=== PATIENT | female | born 1985 | race Caucasian/White ===

== ENCOUNTER 2019-10-30 09:33 | Inpatient (IN) | payer BC ==
[2019-11-01] MEDS ORDERED: OXYTOCIN 10 UNIT/ML 1 ML VIAL IM PRN (03:46)
[2019-11-01] MEDS ORDERED: METHYLERGONOVINE 0.2 MG/ML 1 ML AMP IM PRN (03:46)
[2019-11-01] MEDS ORDERED: LIDOCAINE 0.5% (PF) 5 MG/ML (50 ML SDV) SQ PRN (03:46)
[2019-11-01] MEDS ORDERED: CARBOPROST TROMETHAMINE 250 MCG/ML 1 ML AMP IM PRN (03:46)
[2019-11-01] MEDS ORDERED: TERBUTALINE 1 MG/ML VIAL SQ PRN (03:46)
[2019-11-01] MEDS ORDERED: OXYTOCIN 30 UNITS/500 ML NS 30 UNIT in SALINE 1 500ML.BAG IV SCH (04:00)
[2019-11-01] MEDS: LACTATED RINGERS 1,000 ML IV SCH ×2 (04:13→09:04)
[2019-11-01 05:03] LABS: Basophils % (A) 0 %; Eosinophils # (A) 0.2 k/uL (0-0.7); Eosinophils % (A) 1 %; HCT 34.4 % (34.0-46.0); HGB 11.1 gm/dL (11.4-16.0); Lymphocytes # (A) 2.1 k/uL (1.0-4.8); Lymphocytes % (A) 18 %; MCH 29.4 pg (25.0-35.0); MCHC 32.4 g/dL (31.0-37.0); MCV 90.9 fL (80.0-100.0); Monocytes # (A) 0.5 k/uL (0-1.0); Monocytes % (A) 4 %; Neutrophils # (A) 9.1 k/uL (1.3-7.7); Neutrophils % (A) 76 %; Platelet Count 135 k/uL (150-450); RBC 3.78 m/uL (3.80-5.40); RDW 14.4 % (11.5-15.5)
[2019-11-01 05:45] LABS: Large Platelets Present
--- NOTE | 2019-11-01 07:00 | P.HPOB ---
History of Present Illness H&P Date: 11/01/19 This is a 34-year-old white female 3 para 2003 EDC 10/30/2019 at 40-2/7 weeks' gestation. Patient presents today for induction with favorable multiparous cervix and a history of rapid labor. She actually presented at 3:30 this morning with regular but mild uterine contractions. Fetus is been active throughout the . Past medical history is significant for hemorrhage in 2016 after twin delivery, no transfusion needed. Past surgical history appendectomy 2017. Current medications vitamins daily. ALLERGIES dye allotted to which she reports "my skin feels like is on fire". Family history significant for thyroid disease, seizure disorder, diabetes, heart attack. Reproductive history is significant for vaginal delivery of the knight, as well as twins, in [place]. Social history patient is a former smoker, she is , she denies alcohol or drug use. Obstetric history significant for blood type A-, rubella status immune. VDRL testing, urine culture, gonorrhea and chlamydia cultures, hepatitis B surface antigen, HIV testing all negative. One-hour Glucola 92. Group B strep cultures negative. On exam this is a pleasant white female who is 5 foot 8 inches, 145 pounds, blood pressure 122/57 and admission. The general exam is within normal limits. Chest is clear in all worrell. Extremities are negative for edema. heart rate is consistent with reactive NST. Cervix is 4 cm dilated, 80% effaced, -2 station, vertex presentation. Artificial amniorrhexis reveals clear fluid. Uterine contractions are irregular, oxytocin has been started. Impression: 40-2/7 weeks intrauterine , early spontaneous labor. All signs reassuring. Plan: Oxytocin per hospital protocol. Analgesic options have been reviewed. Close maternal and surveillance. Anticipate normal spontaneous vaginal delivery. Review of Systems Constitutional: Reports as per HPI Past Medical History History of Any Multi-Drug Resistant Organisms: None Reported Past Surgical History: Appendectomy Past Anesthesia/Blood Transfusion Reactions: No Reported Reaction Past Psychological History: No Psychological Hx Reported Smoking Status: Never smoker Medications and Allergies Home Medications Medication Instructions Recorded Confirmed Type Ferrous Sulfate [Feosol] 325 mg PO DAILY 11/01/19 11/01/19 History Pnv,Calcium 72/Iron/Folic Acid 1 each PO DAILY 11/01/19 11/01/19 History [ Plus Tablet] Allergies Allergy/AdvReac Type Severity Reaction Status Date / Time hydromorphone [From Dilaudid] Allergy Rash/Hives Verified 11/01/19 03:45 Exam Vital Signs Temp Pulse Resp BP Pulse Ox 11/01/19 03:44 97.1 F L 81 16 122/57 97 Intake and Output 10/31/19 10/31/19 11/01/19 14:59 22:59 06:59 Intake Total 250 Balance 250 Intake: IV 250 Other: # Voids 1 Weight 69.853 kg See dictation under HPI please Results Result Diagrams: 11/01/19 03:35 Abnormal Lab Results - Last 24 Hours (Table) 11/01/19 Range/Units 03:35 WBC 12.0 H (3.8-10.6) k/uL RBC 3.78 L (3.80-5.40) m/uL Hgb 11.1 L (11.4-16.0) gm/dL Plt Count 135 L (150-450) k/uL Neutrophils # 9.1 H (1.3-7.7) k/uL Assessment and Plan Assessment: 40-2/7 weeks intrauterine , early spontaneous labor. All signs reassuring. Plan: Oxytocin per hospital protocol. Close maternal and surveillance. Analgesic options reviewed. Anticipate normal spontaneous vaginal delivery. Time with Patient: Less than 30
[2019-11-01] MEDS ORDERED: ACETAMINOPHEN TAB 325 MG TAB PO PRN (11:11)
[2019-11-01] MEDS ORDERED: WITCH HAZEL 1 EACH MED..PAD TOPICAL PRN (11:11)
[2019-11-01] MEDS ORDERED: diphenhydrAMINE 25 MG CAP PO PRN (11:11)
[2019-11-01] MEDS ORDERED: ZOLPIDEM 5 MG TAB PO PRN (11:11)
[2019-11-01] MEDS ORDERED: SIMETHICONE 80 MG CHEWABLE PO PRN (11:11)
[2019-11-01] MEDS ORDERED: LANOLIN CREAM 5 GM TUBE TOPICAL PRN (11:11)
[2019-11-01] MEDS ORDERED: diphenhydrAMINE 50 MG/ML 1 ML VIAL IVP PRN ×2 (11:11)
[2019-11-01] MEDS ORDERED: BENZOCAINE/MENTHOL SPRAY 1 GM/SPRAY AEROSOL TOPICAL PRN (11:11)
[2019-11-01] MEDS ORDERED: diphenhydrAMINE 50 MG CAP PO PRN (11:11)
[2019-11-01] MEDS ORDERED: HYDROCORTISONE 2.5% RECTAL CREAM 30 GM TUBE RECTAL PRN (11:11)
[2019-11-01] MEDS ORDERED: diphenhydrAMINE ELIXIR 25 MG/10 ML CUP PO PRN (11:11)
--- NOTE | 2019-11-01 11:11 | P.PROBDLV ---
Vaginal Delivery Note - . Vaginal Delivery Note: This is a 34-year-old white female 3 para 2002 EDC 10/30/2019 at 40-2/7 weeks' gestation. Patient presented for induction for postdates and favorable cervix, however presented in active spontaneous labor through the night at home. is remarkable for rubella status immune, blood type A- , group B strep cultures negative. Please see my dictated history and physical for details. Artificial amniorrhexis revealed clear fluid. Oxytocin augmentation was started. Epidural was placed per her request. She became completely dilated at 1029 hours. Perineal body was prepped and draped in usual sterile fashion. Please note that heart tones were reassuring throughout the first and second stages of labor. With excellent maternal expulsive efforts patient's head delivered in the occiput anterior position and restituted accordingly. There was no nuchal cord noted. The right or anterior shoulder was gently and easily delivered from underneath the pubic symphysis at which time the oropharynx, nasopharynx, and external nares were all bulb suctioned on the perineal body. Patient was officially delivered a liveborn female at 1052 hours. Umbilical cord was doubly clamped and ligated, was handed to waiting nurses for evaluation where scores of 9 and 9 at one and 5 minutes respectively were given. Infant weighs 7 lbs. 9 oz. or 3430 g. Placenta is delivered spontaneously, it is inspected and noted to be intact with trivascular cord at 1056 hours utilizing active management. Perineal body is then redraped. Careful inspection of the cervix, vagina, perineum, periurethral, and perirectal areas reveals a very small first-degree right labial laceration which is easily repaired with a single [id number] stitch of Monocryl. Uterus is firm, midline, symmetric. Bleeding is initially somewhat brisk, Methergine was given IM 1 with excellent and immediate response. Total estimated blood loss 300 mL's. Patient and family are all allowed to begin the bonding experience in the LDR.
[2019-11-01] MEDS ORDERED: OXYTOCIN 20 UNITS/1000 ML NS 1,000 ML IV SCH (11:15)
[2019-11-01] MEDS: IBUPROFEN 600 MG TAB PO PRN ×2 (12:45→22:40)
[2019-11-01 13:20] VITALS: RESP 18
[2019-11-01] MEDS ORDERED: ROPIVACAINE 100 MG, fentaNYL (PF) 200 MCG in SODIUM CHLORIDE 0.9% 76 ML EPIDURAL ONE (13:33)
[2019-11-02] MEDS: LACTATED RINGERS 1,000 ML IV SCH (00:10)
[2019-11-02] MEDS: SENNOSIDES-DOCUSATE SODIUM 1 EACH TAB PO SCH ×2 (00:30→08:02)
--- NOTE | 2019-11-02 07:52 | P.DS ---
Providers Date of admission: 11/01/19 03:25 Expected date of discharge: 11/02/19 Attending physician: Alis Perez Primary care physician: Stated None Hospital Course: This is a 34-year-old white female 3 para 2003 EDC 10/30/2019 at 40-2/7 weeks' gestation. Patient presented for induction for postdates and favorable cervix. She actually presented in early spontaneous labor. is remarkable for blood type A-, group B strep cultures negative, rubella status immune. Please see dictated history and physical for details. Patient was admitted, artificial amniorrhexis revealed clear fluid. Oxytocin was started and titrated. She swiftly went on to deliver a liveborn female with scores of 9 and 9 at one and 5 minutes respectively. There was a small first-degree right labial laceration easily repaired, estimated blood loss 300 mL's. Infant weighed 7 lbs. 9 oz. or 3430 g. Please see my dictated delivery note for details. This morning the patient is doing well. She is voiding, ambulating, passing flatus without difficulty. Vital signs are stable and she is afebrile. Fundus is firm and in the midline, symmetric and 18 week size. Extremities are negative for edema. infant is doing well. Breast-feeding is going well. Pain is well managed. Patient is judged to be in very good condition for discharge home. She will follow-up with me in the office in 6 weeks. I have reminded her no intercourse, tampons or douching. We have briefly reviewed options for contraception and we will discuss this further in the office. She will use [id number] Advil or Aleve, or Motrin as needed for pain. She will call with any fevers shakes or chills, foul smelling or copious lochia, with the passage of large blood clots, with any pain not alleviated by [id number] products, or indeed with any concerns. infant will follow-up with saturator tender as per recommendations. Assessment: Doing well day #1 Patient Condition at Discharge: Good Plan - Discharge Summary Discharge Rx Participant: No New Discharge Prescriptions: No Action Ferrous Sulfate [Feosol] 325 mg PO DAILY Pnv,Calcium 72/Iron/Folic Acid [ Plus Tablet] 1 each PO DAILY Discharge Medication List Ferrous Sulfate [Feosol] 325 mg PO DAILY 11/01/19 [History] Pnv,Calcium 72/Iron/Folic Acid [ Plus Tablet] 1 each PO DAILY 11/01/19 [History] Follow up Appointment(s)/Referral(s): Ails Perez MD [STAFF PHYSICIAN] - 6 Weeks
[2019-11-02] MEDS: IBUPROFEN 600 MG TAB PO PRN (08:02)
[2019-11-02 08:59] VITALS: BP 101/64; PULSE 66; TEMP 98.1
== END 2019-11-02 15:21 | disposition home or self-care (01) | DRG 807 ==
LOC: 4FBP 11-01 03:25
PROVIDERS: ADMIT Obstetrics & Gynecology; ATTEND Obstetrics & Gynecology
PROC: 3E0R3BZ Introduction of Anesthetic Agent into Spinal Canal, Percutaneous Approach (ICD-10-PCS; principal; 2019-11-01)
PROC: 00HU33Z Insertion of Infusion Device into Spinal Canal, Percutaneous Approach (ICD-10-PCS; principal; 2019-11-01)
PROC: 10E0XZZ Delivery of Products of Conception, External Approach (ICD-10-PCS; principal; 2019-11-01)
PROC: 0HQ9XZZ Repair Perineum Skin, External Approach (ICD-10-PCS; principal; 2019-11-01)
DX: O48.0 Post-term pregnancy (principal); Z37.0 Single live birth; O70.0 First degree perineal laceration during delivery; Z3A.40 40 weeks gestation of pregnancy; Z90.49 Acquired absence of other specified parts of digestive tract; Z87.891 Personal history of nicotine dependence; Z91.041 Radiographic dye allergy status; Z82.0 Family history of epilepsy and other diseases of the nervous system; Z82.49 Family history of ischemic heart disease and other diseases of the circulatory system; Z83.3 Family history of diabetes mellitus; Z83.49 Family history of other endocrine, nutritional and metabolic diseases
CPT/HCPCS: 85025; 86850; 86900; 86901

== ENCOUNTER 2020-11-09 11:05 | Emergency (ER) | payer BC ==
[2020-11-09] MEDS ORDERED: SODIUM CHLORIDE 0.9% 1,000 ML IV ONE (11:27)
--- NOTE | 2020-11-09 11:30 | ED ---
General Adult HPI - General Chief complaint: Urogenital Stated complaint: possible cyst, early , syncope Time Seen by Provider: 11/09/20 11:13 Source: patient Mode of arrival: ambulatory Limitations: no limitations - History of Present Illness Initial comments: 35-year-old female currently estimated to be 4 weeks presents to the emergency room for a chief complaint of abdominal pain. Patient reports that she started to have abdominal pain suddenly last night. It is worse on the right lower quadrant. Patient states it feels like a cyst which she has had in the past. Patient states the severe pain lasted for about an hour and then did improve however she does have persistent mild pain at a 4/10. Denies vaginal bleeding. Patient called her TUNNELING MACHINE OPERATOR who is not in the office, therefore the nurse recommended she come to the emergency room. Patient denies any episodes of syncope or lightheadedness. Patient did have an appendectomy. Patient denies fevers or chills. She reports she had a positive test last week.Patient has no other complaints at this time including shortness of breath, chest pain, nausea or vomiting, headache, or visual changes. - Related Data Home Medications Medication Instructions Recorded Confirmed Pnv,Calcium 72/Iron/Folic Acid 1 each PO DAILY 11/01/19 11/09/20 [ Plus Tablet] Acetaminophen Tab [Tylenol] 650 mg PO DAILY PRN 11/09/20 11/09/20 Allergies Allergy/AdvReac Type Severity Reaction Status Date / Time hydromorphone [From Dilaudid] Allergy Rash/Hives Verified 11/09/20 12:40 Review of Systems ROS Statement: Those systems with pertinent positive or pertinent negative responses have been documented in the HPI. ROS Other: All systems not noted in ROS Statement are negative. Past Medical History Additional Past Medical History / Comment(s): Ovarian cyst. History of Any Multi-Drug Resistant Organisms: None Reported Past Surgical History: Appendectomy Past Anesthesia/Blood Transfusion Reactions: No Reported Reaction Past Psychological History: No Psychological Hx Reported Smoking Status: Never smoker Past Alcohol Use History: Occasional Past Drug Use History: None Reported General Exam Limitations: no limitations General appearance: alert, in no apparent distress Head exam: Present: atraumatic, normocephalic, normal inspection Eye exam: Present: normal appearance, PERRL, EOMI. Absent: scleral icterus, conjunctival injection, periorbital swelling ENT exam: Present: normal exam, mucous membranes moist Neck exam: Present: normal inspection. Absent: tenderness, meningismus, lymphadenopathy Respiratory exam: Present: normal lung sounds bilaterally. Absent: respiratory distress, wheezes, rales, rhonchi, stridor Cardiovascular Exam: Present: regular rate, normal rhythm, normal heart sounds. Absent: systolic murmur, diastolic murmur, rubs, gallop, clicks GI/Abdominal exam: Present: soft, tenderness (Minimal right lower quadrant tenderness. No guarding or rebound.), normal bowel sounds. Absent: distended, guarding, rebound, rigid External exam: Present: normal external exam. Absent: erythema, swelling, lesions, lacerations, ecchymosis Speculum exam: Present: normal speculum exam. Absent: erythema, vaginal discharge, cervical discharge, vaginal bleeding, foreign body, tissue, laceratio n By manual exam: Present: adnexal tenderness (Slight right adnexal tenderness.), uterine tenderness (Slight uterine tenderness.). Absent: normal by manual exam, cervical motion tenderness Neurological exam: Present: alert Course Vital Signs 11/09/20 11:08 Temperature 97.7 F Pulse Rate 98 Respiratory 20 Rate Blood Pressure 120/81 O2 Sat by Pulse 99 Oximetry Medical Decision Making - Medical Decision Making Patient is well-appearing. Vitals are stable. Minimal abdominal tenderness. Minimal adnexal tenderness. No significant tenderness or guarding. Patient currently rating her pain at a 4 out of 10, does not appear in distress. CBC is unremarkable. Hemoglobin 12.5. CMP is unremarkable. Urinalysis does not show any evidence of infection. A- blood type however patient is not having any vaginal bleeding. HCG is 1800. Ultrasound revealed a complex free fluid noted in the cul-de-sac right adnexa. There is a large heterogeneous area within the right ovary which is indeterminant, follow-up in 6 weeks recommended. There is also markedly heterogeneous signal with some fluid seen in the uterus which is indeterminant. May represent blood products versus molar . However other etiologies are possible. Patient's TUNNELING MACHINE OPERATOR is Dr. Perez, Dr. Conn is on-call for her. I discussed this case with him in depth. I read the ultrasound report to him and discuss concerns. At this point he states that he needs her to repeat her hCG in 2 days and to discuss strict return parameters for ectopic . Patient is comfortable with this plan. I did have a lengthy discussion with her about symptoms that would require her to immediately return to the emergency room. She will otherwise follow up with him on Thursday. - Lab Data Result diagrams: 11/09/20 11:45 11/09/20 11:45 Lab Results 11/09/20 11/09/20 11/09/20 Range/Units 11:45 11:45 11:45 WBC 11.9 H (3.8-10.6) k/uL RBC 4.44 (3.80-5.40) m/uL Hgb 12.5 (11.4-16.0) gm/dL Hct 37.0 (34.0-46.0) % MCV 83.4 (80.0-100.0) fL MCH 28.1 (25.0-35.0) pg MCHC 33.7 (31.0-37.0) g/dL RDW 12.8 (11.5-15.5) % Plt Count 190 (150-450) k/uL MPV 9.3 Neutrophils % 82 % Lymphocytes % 13 % Monocytes % 3 % Eosinophils % 1 % Basophils % 0 % Neutrophils # 9.8 H (1.3-7.7) k/uL Lymphocytes # 1.5 (1.0-4.8) k/uL Monocytes # 0.4 (0-1.0) k/uL Eosinophils # 0.1 (0-0.7) k/uL Basophils # 0.0 (0-0.2) k/uL Sodium (137-145) mmol/L Potassium (3.5-5.1) mmol/L Chloride (98-107) mmol/L Carbon Dioxide (22-30) mmol/L Anion Gap mmol/L BUN (7-17) mg/dL Creatinine (0.52-1.04) mg/dL Est GFR (CKD-EPI)AfAm (>60 ml/min/1.73 sqM) Est GFR (CKD-EPI)NonAf (>60 ml/min/1.73 sqM) Glucose (74-99) mg/dL Calcium (8.4-10.2) mg/dL Total Bilirubin (0.2-1.3) mg/dL AST (14-36) U/L ALT (4-34) U/L Alkaline Phosphatase (38-126) U/L Total Protein (6.3-8.2) g/dL Albumin (3.5-5.0) g/dL HCG, Quant mIU/mL Urine Color Light Yellow Urine Appearance Clear (Clear) Urine pH 6.5 (5.0-8.0) Ur Specific [place] 1.007 (1.001-1.035) Urine Protein Negative (Negative) Urine Glucose (UA) Negative (Negative) Urine Ketones Negative (Negative) Urine Blood Negative (Negative) Urine Nitrite Negative (Negative) Urine Bilirubin Negative (Negative) Urine Urobilinogen <2.0 (<2.0) mg/dL Ur Leukocyte Esterase Negative (Negative) Urine HCG, Qual Detected (Not Detectd) Blood Type Blood Type Recheck Bld Type Recheck Status Antibody Screen Spec Expiration Date 11/09/20 11/09/20 Range/Units 11:45 11:45 WBC (3.8-10.6) k/uL RBC (3.80-5.40) m/uL Hgb (11.4-16.0) gm/dL Hct (34.0-46.0) % MCV (80.0-100.0) fL MCH (25.0-35.0) pg MCHC (31.0-37.0) g/dL RDW (11.5-15.5) % Plt Count (150-450) k/uL MPV Neutrophils % % Lymphocytes % % Monocytes % % Eosinophils % % Basophils % % Neutrophils # (1.3-7.7) k/uL Lymphocytes # (1.0-4.8) k/uL Monocytes # (0-1.0) k/uL Eosinophils # (0-0.7) k/uL Basophils # (0-0.2) k/uL Sodium 138 (137-145) mmol/L Potassium 3.9 (3.5-5.1) mmol/L Chloride 104 (98-107) mmol/L Carbon Dioxide 25 (22-30) mmol/L Anion Gap 9 mmol/L BUN 7 (7-17) mg/dL Creatinine 0.62 (0.52-1.04) mg/dL Est GFR (CKD-EPI)AfAm >90 (>60 ml/min/1.73 sqM) Est GFR (CKD-EPI)NonAf >90 (>60 ml/min/1.73 sqM) Glucose 90 (74-99) mg/dL Calcium 9.6 (8.4-10.2) mg/dL Total Bilirubin 0.4 (0.2-1.3) mg/dL AST 20 (14-36) U/L ALT 15 (4-34) U/L Alkaline Phosphatase 98 (38-126) U/L Total Protein 7.6 (6.3-8.2) g/dL Albumin 4.6 (3.5-5.0) g/dL HCG, Quant 1805.6 mIU/mL Urine Color Urine Appearance (Clear) Urine pH (5.0-8.0) Ur Specific [place] (1.001-1.035) Urine Protein (Negative) Urine Glucose (UA) (Negative) Urine Ketones (Negative) Urine Blood (Negative) Urine Nitrite (Negative) Urine Bilirubin (Negative) Urine Urobilinogen (<2.0) mg/dL Ur Leukocyte Esterase (Negative) Urine HCG, Qual (Not Detectd) Blood Type A Negative Blood Type Recheck A Neg Bld Type Recheck Status No Antibody Screen NEGATIVE Spec Expiration Date 11/12/20202344 Disposition Clinical Impression: Abdominal pain during Disposition: HOME SELF-CARE Condition: Good Instructions (If sedation given, give patient instructions): Abdominal Pain in (ED) Additional Instructions: Please repeat laboratory evaluation on Thursday afternoon. You can come back to the ER and have this drawn. This will be sent to Dr. Conn. Call the office to let them know you need to be seen on Thursday for a follow-up appointment. If over the weekend you have any worsening symptoms at all such as vaginal bleeding, abdominal pain, lightheadedness, you pass out, or any other concerning symptoms you need to return immediately to the emergency room. Is patient prescribed a controlled substance at d/c from ED?: No Referrals: Tavares Conn MD [STAFF PHYSICIAN] - 1-2 days Alis Perez MD [Family Provider] - 1-2 days Time of Disposition: 13:55
[2020-11-09 12:02] LABS: Appearance,Urine Clear (Clear); Bilirubin,Urine Negative (Negative); Blood,Urine Negative (Negative); Color,Urine Light Yellow; Glucose,Urine (UA) Negative (Negative); Ketones,Urine Negative (Negative); Leukocyte Esterase,Urine Negative (Negative); Nitrite,Urine Negative (Negative); PH, Urine 6.5 (5.0-8.0); Protein,Urine Negative (Negative); Specific Gravity,Urine 1.007 (1.001-1.035); Urobilinogen,Urine <2.0 mg/dL (<2.0)
[2020-11-09 12:03] LABS: Basophils % (A) 0 %; Eosinophils # (A) 0.1 k/uL (0-0.7); Eosinophils % (A) 1 %; HGB 12.5 gm/dL (11.4-16.0); Lymphocytes # (A) 1.5 k/uL (1.0-4.8); Lymphocytes % (A) 13 %; MCH 28.1 pg (25.0-35.0); MCHC 33.7 g/dL (31.0-37.0); MCV 83.4 fL (80.0-100.0); Mean Platelet Volume 9.3; Monocytes # (A) 0.4 k/uL (0-1.0); Monocytes % (A) 3 %; Neutrophils # (A) 9.8 k/uL (1.3-7.7); Neutrophils % (A) 82 %; Platelet Count 190 k/uL (150-450); RBC 4.44 m/uL (3.80-5.40); RDW 12.8 % (11.5-15.5); WBC 11.9 k/uL (3.8-10.6)
[2020-11-09 12:22] LABS: ALT 15 U/L (4-34); AST 20 U/L (14-36); African American GFR (CKD) >90 (>60 ml/min/1.73 sqM); Albumin 4.6 g/dL (3.5-5.0); Alkaline Phosphatase 98 U/L (38-126); Anion Gap 9 mmol/L; Blood Urea Nitrogen 7 mg/dL (7-17); Calcium 9.6 mg/dL (8.4-10.2); Carbon Dioxide 25 mmol/L (22-30); Chloride 104 mmol/L (98-107); Glucose 90 mg/dL (74-99); Non-African American GFR(CKD) >90 (>60 ml/min/1.73 sqM); Potassium 3.9 mmol/L (3.5-5.1); Sodium 138 mmol/L (137-145); Total Bilirubin 0.4 mg/dL (0.2-1.3); Total Protein 7.6 g/dL (6.3-8.2)
[2020-11-09 12:34] LABS: HCG,Quantitative Serum 1805.6 mIU/mL
--- NOTE | 2020-11-09 12:39 | US ---
EXAMINATION TYPE: Transabdominal DATE OF EXAM: 11/09/2020 12:21 PM COMPARISON: NONE CLINICAL HISTORY: pain. pelvic pain EXAM PERFORMED: Transvaginal (TV) and Transabdominal (TA) EXAM MEASUREMENTS: GESTATIONAL AGE / DATING Physician Established: Not yet established Dates by LMP: (6 weeks/1 days) EDC: 07/04/21 Dates by First Scan: No previous this is first scan Dates by Current Scan for: No IUP seen at this time MATERNAL ANATOMY Uterus: 7.7 x 4.4 x 6.2cm Right Ovary: 5.7 x 4.1 x 5.0cm Left Ovary: 2.2 x 1.8 x 1.8cm Post CDS / Adnexa: free fluid right adnexa and cul-de-sac. dilated vessels left adnexa Presence of free fluid: yes Presence of corpus luteal cyst: isoechoic area right ovary = 4.9 x 3.8 x 3.8cm and cystic area right ovary = 2.4 x 2.5 x 1.9cm GESTATION / SURVEY IUP: No IUP seen at this time - irregular fluid collection noted within uterus - no evidence of yolk sac or pole Date of LMP: 09/27/20 Beta HcG (if available): Not available at this time IMPRESSION: 1. No definite intrauterine is identified. There is markedly heterogeneous signal with some fluid seen in the uterus which is indeterminant. This may represent blood products versus molar preg eusebio, however, other etiologies are possible. Please correlate with patient's clinical scenario, bet a hCG value and repeat imaging and laboratory values can be obtained as clinically warranted. 2. There is a large heterogeneous area within the right ovary which is also indeterminant. At least s onographic follow-up in 6 weeks is recommended. 3. There is complex free fluid noted in the cul-de-sac and right adnexa.
[2020-11-09 14:22] VITALS: BP 119/71; PULSE 79; RESP 18; TEMP 98.6
== END 2020-11-09 14:24 | disposition home or self-care (01) ==
LOC: EC 11:05
DX: O26.891 Other specified pregnancy related conditions, first trimester (principal); Z3A.01 Less than 8 weeks gestation of pregnancy; R10.30 Lower abdominal pain, unspecified
CPT/HCPCS: 36415; 76801; 76817; 80053; 81003; 81025; 84702; 85025; 86850; 86900; 86901; 96360; 96361; 99284

== ENCOUNTER → 2020-11-11 | Outpatient (CLI) | payer BC | END | disposition home or self-care (01) | LOC: LABMAIN 13:24 | PROVIDERS: ATTEND Physician Assistant Medical | DX: O26.891 Other specified pregnancy related conditions, first trimester (principal); Z3A.00 Weeks of gestation of pregnancy not specified | CPT/HCPCS: 36415; 84702 ==

== ENCOUNTER → 2020-11-13 | Outpatient (CLI) | payer BC | END | disposition home or self-care (01) | LOC: LABWHC1 09:48 | PROVIDERS: ATTEND Obstetrics & Gynecology | DX: Z33.1 Pregnant state, incidental (principal) | CPT/HCPCS: 36415; 84702 ==

== ENCOUNTER 2021-07-08 06:00 | Inpatient (IN) | payer BC, OTHER ==
[2021-07-10] MEDS ORDERED: METHYLERGONOVINE 0.2 MG/ML 1 ML AMP IM PRN (06:42)
[2021-07-10] MEDS ORDERED: TERBUTALINE 1 MG/ML VIAL SQ PRN (06:42)
[2021-07-10] MEDS ORDERED: OXYTOCIN 10 UNIT/ML 1 ML VIAL IM PRN (06:42)
[2021-07-10] MEDS ORDERED: CARBOPROST TROMETHAMINE 250 MCG/ML 1 ML AMP IM PRN (06:42)
[2021-07-10] MEDS ORDERED: LIDOCAINE 1% (PF) 10 MG/ML (30 ML SDV) SQ PRN (06:42)
[2021-07-10] MEDS ORDERED: OXYTOCIN 30 UNITS/500 ML NS 30 UNIT in SALINE 1 500ML.BAG IV SCH (06:45)
[2021-07-10] MEDS: LACTATED RINGERS 1,000 ML IV SCH ×2 (07:05→10:24)
[2021-07-10 07:13] LABS: Basophils # (A) 0.1 k/uL (0-0.2); Basophils % (A) 1 %; Eosinophils # (A) 0.2 k/uL (0-0.7); Eosinophils % (A) 2 %; HGB 10.5 gm/dL (11.4-16.0); Lymphocytes # (A) 1.9 k/uL (1.0-4.8); Lymphocytes % (A) 18 %; MCH 31.3 pg (25.0-35.0); MCHC 35.1 g/dL (31.0-37.0); MCV 89.1 fL (80.0-100.0); Mean Platelet Volume 9.8; Monocytes # (A) 0.5 k/uL (0-1.0); Monocytes % (A) 5 %; Neutrophils # (A) 7.6 k/uL (1.3-7.7); Neutrophils % (A) 73 %; Platelet Count 159 k/uL (150-450); RBC 3.37 m/uL (3.80-5.40); RDW 14.2 % (11.5-15.5); WBC 10.4 k/uL (3.8-10.6)
--- NOTE | 2021-07-10 12:33 | P.HPOB ---
History of Present Illness H&P Date: 07/10/21 Chief Complaint: Here for induction of labor with favorable multiparous cervix This is a 36-year-old female 4 para 3004 EDC 07/13/2021 at 39-4/7 weeks' gestation who presents for elective induction with history of fast labors, and favorable multiparous cervix. Fetus is been active throughout the . She is having spontaneous mild uterine contractions on her own. history is significant for group B strep cultures negative, hepatitis B surface antigen, HIV testing, urine culture, gonorrhea and chlamydia cultures, Pap smear all negative. Rubella status immune. One-hour Glucola within normal limits. Past medical history significant for hemorrhage after twin delivery in 2016, depression, history of anemia. Past surgical history LEEP procedure 2017, appendectomy 2018. Current medications vitamins daily. ALLERGIES include dilated to which reports skin well take, along with skin sensitivity. Family history significant for tricuspid regurgitation, seizures, mental illness, thyroid disease, ovarian cancer, type 2 diabetes. Surgical history significant for normal spontaneous vaginal deliveries in [place], as well as recently in [place] under my care. Social history patient is . She works at home. She denies alcohol or drug use. No tobacco use. On exam patient is 5 foot 8-1/2 inches, 153 pounds, blood pressure 125/78. General physical exam is within normal limits. Cervix is 3-4 cm dilated, 60-70% effaced, vertex presentation, soft, slightly posterior. Artificial amniorrhexis reveals clear fluid. Heart rate is consistent with reactive NST. Impression: 39-4/7 weeks intrauterine , favorable multiparous cervix, history of fast labors, here for induction of labor. All signs reassuring. Advanced maternal age noted. Plan we will proceed with oxytocin augmentation and close maternal and surveillance. Analgesic options reviewed. Anticipate normal spontaneous v aginal delivery. Review of Systems Constitutional: Reports as per HPI Past Medical History Additional Past Medical History / Comment(s): Ovarian cyst. History of Any Multi-Drug Resistant Organisms: None Reported Past Surgical History: Appendectomy Past Anesthesia/Blood Transfusion Reactions: No Reported Reaction Past Psychological History: No Psychological Hx Reported Smoking Status: Never smoker Past Alcohol Use History: Occasional Past Drug Use History: None Reported - Past Family History Father Family Medical History: Diabetes Mellitus, Myocardial Infarction (ID) Medications and Allergies Home Medications Medication Instructions Recorded Confirmed Type Pnv,Calcium 72/Iron/Folic Acid 1 each PO DAILY 11/01/19 07/10/21 History [ Plus Tablet] Acetaminophen Tab [Tylenol] 650 mg PO DAILY PRN 11/09/20 07/10/21 History Aspirin 81 mg PO DAILY 07/10/21 07/10/21 History Ferrous Sulfate [Feosol] 325 mg PO BID 07/10/21 07/10/21 History Allergies Allergy/AdvReac Type Severity Reaction Status Date / Time hydromorphone [From Dilaudid] Allergy Rash/Hives Verified 07/10/21 06:40 Latex, Natural Rubber Allergy Rash/Hives Verified 07/10/21 06:49 Exam Vital Signs Temp Pulse Resp BP Pulse Ox 07/10/21 07:48 96.5 F L 64 16 125/78 100 Intake and Output 07/09/21 07/10/21 07/10/21 22:59 06:59 14:59 Other: Weight 69.4 kg 69.4 kg see dictation under HPI, please Results Result Diagrams: 07/10/21 07:00 Abnormal Lab Results - Last 24 Hours (Table) 07/10/21 Range/Units 07:00 RBC 3.37 L (3.80-5.40) m/uL Hgb 10.5 L (11.4-16.0) gm/dL Hct 30.0 L (34.0-46.0) % Assessment and Plan Assessment: 39-4/7 weeks intrauterine , advanced maternal age, favorable multiparous cervix, history of rapid labors. Here for induction of labor. Plan: Continue close maternal and surveillance. Oxytocin per hospital protocol. Anticipate normal spontaneous vaginal delivery. Analgesic options reviewed Time with Patient: Less than 30
[2021-07-10] MEDS ORDERED: diphenhydrAMINE 50 MG/ML 1 ML VIAL IVP PRN ×2 (12:35)
[2021-07-10] MEDS ORDERED: HYDROCORTISONE 2.5% RECTAL CREAM 30 GM TUBE RECTAL PRN (12:35)
[2021-07-10] MEDS ORDERED: ACETAMINOPHEN TAB 325 MG TAB PO PRN (12:35)
[2021-07-10] MEDS ORDERED: BENZOCAINE/MENTHOL SPRAY 1 GM/SPRAY AEROSOL TOPICAL PRN (12:35)
[2021-07-10] MEDS ORDERED: diphenhydrAMINE 25 MG CAP PO PRN (12:35)
[2021-07-10] MEDS ORDERED: diphenhydrAMINE ELIXIR 25 MG/10 ML CUP PO PRN (12:35)
[2021-07-10] MEDS ORDERED: SIMETHICONE 80 MG CHEWABLE PO PRN (12:35)
[2021-07-10] MEDS ORDERED: diphenhydrAMINE 50 MG CAP PO PRN (12:35)
[2021-07-10] MEDS ORDERED: ZOLPIDEM 5 MG TAB PO PRN (12:35)
[2021-07-10] MEDS ORDERED: LANOLIN CREAM 5 GM TUBE TOPICAL PRN (12:35)
--- NOTE | 2021-07-10 12:35 | P.PROBDLV ---
Vaginal Delivery Note - . Vaginal Delivery Note: This is a 36-year-old female 4 para 3004 EDC 07/13/2021 at 39-4/7 weeks' gestation. Patient presented for induction with favorable multiparous cervix, and a history of rapid labor. Blood type A negative, rubella status immune. Rupee strep cultures negative. Please see dictated history and physical for details. Artificial amniorrhexis revealed clear fluid. Oxytocin was started and titrated per hospital protocol. Epidural was placed per her request. Patient progressed well and became completely dilated at 1207 hrs. Perineal body was prepped and draped in usual sterile fashion. With excellent maternal expulsive efforts the infant's head crowned occiput anterior and she restituted accordingly. There was a nuchal cord 1 that was reduced. The left or anterior shoulder was then gently delivered from underneath the pubic symphysis at which time the oropharynx, nasopharynx, and external nares were all bulb suctioned. Patient was officially delivered a liveborn female at 1215 hrs. Umbilical cord was doubly clamped and ligated, she was handed to waiting nurses for evaluation where scores of 9 and 9 at one and 5 minutes respectively were given. The center delivered spontaneously, it was inspected and noted to be intact with trivascular cord at 1218 hrs. Uterus is then massaged. Careful inspection of cervix, vagina, perineum, periurethral, and perirectal areas revealed no lacerations and no defects. Infant weighs 3360 g or 7 lbs. 7 oz. Total estimated blood loss 200 mL's. Patient and her family are allowed to begin the bonding experience in the LDR.
[2021-07-10] MEDS ORDERED: ROPIVACAINE 100 MG, fentaNYL (PF). 200 MCG in SODIUM CHLORIDE 0.9% 76 ML EPIDURAL ONE (13:27)
[2021-07-10] MEDS: SENNOSIDES-DOCUSATE SODIUM 1 EACH TAB PO SCH (19:57)
[2021-07-10] MEDS: IBUPROFEN 600 MG TAB PO SCH (19:57)
[2021-07-11] MEDS: LACTATED RINGERS 1,000 ML IV SCH (01:22)
[2021-07-11] MEDS: IBUPROFEN 600 MG TAB PO SCH ×4 (01:45→20:05)
[2021-07-11] MEDS: SENNOSIDES-DOCUSATE SODIUM 1 EACH TAB PO SCH ×2 (08:06→20:05)
--- NOTE | 2021-07-11 08:06 | P.DS ---
Providers Date of admission: 07/10/21 06:22 Expected date of discharge: 07/11/21 Attending physician: Alis Perez Primary care physician: Stated None Hospital Course: This is a 36-year-old white female 4 para 3004 at 39-4/7 weeks' gestation who presented for induction with favorable multiparous cervix. Blood type is A-, rubella status immune. Rupee strep cultures negative. Please see dictated history and physical for details. Artificial amniorrhexis revealed clear fluid. Oxytocin was started and only low doses were required. Epidural was placed per her request. She went on to deliver vaginally a liveborn female with scores of 9 and 9 at one and 5 minutes respectively. weighed 3360 g or 7 lbs. 7 oz. No lacerations were encountered. Estimated blood loss 200 mL's. Please see dictated delivery note for details. This morning the patient is doing well. She is voiding, ambulating and passing flatus without difficulty. Vital signs are stable and she is afebrile. Fundus is firm and in the midline, symmetric and 18 week size. Extremities are negative for edema. [place] is doing well. Prescription for a double electric breast pump is provided. Patient is judged to be in very good condition for discharge home. She will follow-up with me in the office in 6 weeks. We have discussed contraceptive options and we will discuss this further in the office. She will call with any fevers shakes or chills, foul smelling or copious lochia, with the passage of large blood clots, with any pain not alleviated by [id number] Advil or Aleve, or ibuprofen, or indeed with any concerns. Assessment: Doing well day #1 Patient Condition at Discharge: Good Plan - Discharge Summary Discharge Rx Participant: No New Discharge Prescriptions: No Action Pnv,Calcium 72/Iron/Folic Acid [ Plus Tablet] 1 each PO DAILY Aspirin 81 mg PO DAILY Acetaminophen Tab [Tylenol] 650 mg PO DAILY PRN PRN Reason: Fever And/ Or Pain Ferrous Sulfate [Feosol] 325 mg PO BID Discharge Medication List Pnv,Calcium 72/Iron/Folic Acid [ Plus Tablet] 1 each PO DAILY 11/01/19 [History] Acetaminophen Tab [Tylenol] 650 mg PO DAILY PRN 11/09/20 [History] Aspirin 81 mg PO DAILY 07/10/21 [History] Ferrous Sulfate [Feosol] 325 mg PO BID 07/10/21 [History] Follow up Appointment(s)/Referral(s): Alis Perez MD [STAFF PHYSICIAN] - 6 Weeks Discharge Disposition: HOME SELF-CARE
[2021-07-12] MEDS: IBUPROFEN 600 MG TAB PO SCH ×2 (02:52→11:27)
[2021-07-12 09:48] VITALS: BP 112/71; PULSE 74; RESP 18; TEMP 97.7
[2021-07-12] MEDS: SENNOSIDES-DOCUSATE SODIUM 1 EACH TAB PO SCH (11:27)
== END 2021-07-12 10:30 | disposition home or self-care (01) | DRG 807 ==
LOC: 4FBP 07-10 06:22
PROVIDERS: ADMIT Obstetrics & Gynecology; ATTEND Obstetrics & Gynecology
PROC: 10E0XZZ Delivery of Products of Conception, External Approach (ICD-10-PCS; principal; 2021-07-10)
PROC: 10907ZC Drainage of Amniotic Fluid, Therapeutic from Products of Conception, Via Natural or Artificial Opening (ICD-10-PCS; 2021-07-10)
PROC: 3E033VJ Introduction of Other Hormone into Peripheral Vein, Percutaneous Approach (ICD-10-PCS; 2021-07-10)
PROC: 4A0HXCZ Measurement of Products of Conception, Cardiac Rate, External Approach (ICD-10-PCS; 2021-07-10)
DX: O69.81X0 Labor and delivery complicated by cord around neck, without compression, not applicable or unspecified (principal); Z37.0 Single live birth; Z3A.39 39 weeks gestation of pregnancy; O99.02 Anemia complicating childbirth; D64.9 Anemia, unspecified; Z79.82 Long term (current) use of aspirin; Z80.41 Family history of malignant neoplasm of ovary; Z82.49 Family history of ischemic heart disease and other diseases of the circulatory system; Z83.3 Family history of diabetes mellitus; Z91.040 Latex allergy status; Z88.5 Allergy status to narcotic agent; Z91.048 Other nonmedicinal substance allergy status
CPT/HCPCS: 85025; 86850; 86900; 86901

== ENCOUNTER 2024-01-20 06:15 | Inpatient (IN) | payer OTHER, BC ==
[2024-01-20] MEDS ORDERED: OXYTOCIN 10 UNIT/ML 1 ML VIAL IM PRN (06:42)
[2024-01-20] MEDS ORDERED: TERBUTALINE 1 MG/ML VIAL SQ PRN (06:42)
[2024-01-20] MEDS ORDERED: LIDOCAINE 0.5% (PF) 5 MG/ML (50 ML SDV) SQ PRN (06:42)
[2024-01-20] MEDS ORDERED: TRANEXAMIC 1,000 MG/100ML-NACL 1,000 MG in EMPTY BAG 1 BAG IV PRN (06:42)
[2024-01-20] MEDS ORDERED: METHYLERGONOVINE 0.2 MG/ML 1 ML AMP IM PRN (06:42)
[2024-01-20] MEDS ORDERED: miSOPROStoL 200 MCG TAB PO PRN (06:42)
[2024-01-20] MEDS ORDERED: miSOPROStoL 200 MCG TAB RECTAL PRN (06:42)
[2024-01-20] MEDS ORDERED: CARBOPROST TROMETHAMINE 250 MCG/ML 1 ML AMP IM PRN (06:42)
[2024-01-20] MEDS: OXYTOCIN 30 UNITS/500 ML NS 30 UNIT in SALINE 1 500ML.BAG IV SCH (07:04)
[2024-01-20] MEDS: LACTATED RINGERS 1,000 ML IV SCH (07:06)
[2024-01-20 07:18] LABS: Basophils % (A) 0 %; Eosinophils # (A) 0.2 k/uL (0-0.7); Eosinophils % (A) 2 %; HCT 28.2 % (34.0-46.0); HGB 9.8 gm/dL (11.4-16.0); Lymphocytes # (A) 1.7 k/uL (1.0-4.8); Lymphocytes % (A) 17 %; MCH 30.6 pg (25.0-35.0); MCHC 34.8 g/dL (31.0-37.0); MCV 87.9 fL (80.0-100.0); Mean Platelet Volume 9.3; Monocytes # (A) 0.5 k/uL (0-1.0); Monocytes % (A) 5 %; Neutrophils # (A) 7.4 k/uL (1.3-7.7); Neutrophils % (A) 74 %; Platelet Count 153 k/uL (150-450); RBC 3.21 m/uL (3.80-5.40); RDW 14.2 % (11.5-15.5); WBC 9.9 k/uL (3.8-10.6)
[2024-01-20] MEDS ORDERED: NALBUPHINE 10 MG/ML (10 ML MDV) IV PRN (08:40)
--- NOTE | 2024-01-20 08:45 | P.HPOB ---
History of Present Illness H&P Date: 01/20/24 Chief Complaint: 39+ weeks, elective induction The patient is a 39-year-old 5 para 4-0-0-5 who is admitted for elective induction at 39+ weeks as established by last menstrual period and confirmed by 8-week ultrasound. Her has been uncomplicated. She does fall into the category of advanced maternal age and underwent trisomy testing which was negative. She is also known to be Rh- and received RhoGAM at 28 weeks. On labor and delivery, all signs are reassuring with a category 1 heart rate tracing. Group B strep status is negative. Obstetrical history: 5 para 4-0-0-5 with current statistics listed in history of present illness. EDC of 01/27/2024 was established by last menstrual period and confirmed by 8-week ultrasound. Laboratory workup demonstrates a blood type of a negative with a negative antibody screen. Rubella status is immune. The remainder of the laboratory workup was within normal limits. 1 hour Glucola was normal and group B strep status is negative. Gynecologic history: Unremarkable with no history of any infections to include STDs. Review of Systems Review of systems is confined to history of present illness. Past Medical History Additional Past Medical History / Comment(s): Ovarian cyst, anemia, leep procedu re, post hemorrhage History of Any Multi-Drug Resistant Organisms: None Reported Past Surgical History: Appendectomy Past Anesthesia/Blood Transfusion Reactions: No Reported Reaction Past Psychological History: No Psychological Hx Reported Smoking Status: Never smoker Past Alcohol Use History: Occasional Past Drug Use History: None Reported - Past Family History Father Family Medical History: Diabetes Mellitus, Myocardial Infarction (NH) Medications and Allergies Home Medications Medication Instructions Recorded Confirmed Type Vit No.180/Iron/Folic 1 each PO DAILY 11/01/19 01/20/24 History [ Plus Tablet] Ferrous Sulfate [Feosol] 325 mg PO BID 07/10/21 01/20/24 History Allergies Allergy/AdvReac Type Severity Reaction Status Date / Time hydromorphone [From Dilaudid] Allergy Rash/Hives Verified 01/20/24 06:33 Latex, Natural Rubber Allergy Rash/Hives Verified 01/20/24 06:33 Exam Vital Signs Temp Pulse Resp BP 01/20/24 06:32 97.7 F 86 16 116/71 Intake and Output 01/19/24 01/20/24 01/20/24 22:59 06:59 14:59 Other: Weight 74.843 kg In general, this is a well-developed, well-nourished white female in no acute distress. Her heart has a regular rhythm and rate without murmur. Her lungs are clear to auscultation bilateral in all worrell. Her abdomen is gravid, nondistended, has normal active bowel sounds, is soft, nontender, and without any palpable masses aside from uterine fundus. Her extremities are without any cyanosis, clubbing, or edema and are nontender to palpation bilaterally. Digital cervical examination demonstrates her cervix to be a tight 3 cm dilated, 50% effaced, with a vertex and presentation at -2 station. Artificial rupture of membranes is carried out demonstrating clear fluid. Results Result Diagrams: 01/20/24 07:10 Abnormal Lab Results - Last 24 Hours (Table) 01/20/24 Range/Units 07:10 RBC 3.21 L (3.80-5.40) m/uL Hgb 9.8 L (11.4-16.0) gm/dL Hct 28.2 L (34.0-46.0) % Assessment and Plan (1) Term Current Visit: Yes Status: Acute Code(s): Z34.90 - ENCNTR FOR SUPRVSN OF NORMAL , UNSP, UNSP TRIMESTER SNOMED Code(s): 88085073 Plan: The patient is admitted for elective induction of labor. Pitocin augmentation has been started and she has undergone artificial rupture of membranes. She will have close maternal and surveillance and expectant management will be practiced. She is a good candidate for either IV or epidural analgesia, whichever she may choose.
[2024-01-20] MEDS ORDERED: ROPIVACAINE 5 MG/ML 30 ML VIAL ONE (09:00)
[2024-01-20] MEDS ORDERED: fentaNYL (PF) 50 MCG/ML 5 ML AMP ONE (09:00)
[2024-01-20] MEDS ORDERED: SODIUM CHLORIDE 0.9% 250 ML BAG ONE (09:00)
[2024-01-20] MEDS ORDERED: diphenhydrAMINE 50 MG CAP PO PRN (13:14)
[2024-01-20] MEDS ORDERED: BENZOCAINE/MENTHOL SPRAY 1 GM/SPRAY AEROSOL TOPICAL PRN (13:14)
[2024-01-20] MEDS ORDERED: SIMETHICONE 80 MG CHEWABLE PO PRN (13:14)
[2024-01-20] MEDS ORDERED: HYDROCORTISONE 2.5% RECTAL CREAM 30 GM TUBE RECTAL PRN (13:14)
[2024-01-20] MEDS ORDERED: diphenhydrAMINE 25 MG CAP PO PRN (13:14)
[2024-01-20] MEDS ORDERED: LANOLIN CREAM 1 GM TUBE TOPICAL PRN (13:14)
[2024-01-20] MEDS ORDERED: diphenhydrAMINE 50 MG/ML 1 ML VIAL IVP PRN ×2 (13:14)
[2024-01-20] MEDS ORDERED: ZOLPIDEM 5 MG TAB PO PRN (13:14)
--- NOTE | 2024-01-20 13:14 | P.PROBDLV ---
Vaginal Delivery Note - . Vaginal Delivery Note: Findings viable female delivered at 1247, weight of 6 pounds 12 ounces, Apgars of 9 and 10 at 1 and 5 minutes respectively. 39-year-old 5 para 4-0-0-5, 1 set of vaginal twins. Patient presented to labor and delivery for scheduled induction of labor. Patient was admitted and Pitocin induction of labor was begun. Patient underwent amniotomy and clear fluid was obtained. Patient progressed through labor becoming uncomfortable and requesting epidural. Epidural was placed without difficulty by the anesthesia department. Patient progressed to complete began pushing and had a normal spontaneous vaginal delivery of a viable female infant at 1247, weight of 6 pounds 12 ounces. After 2-minute delay the umbilical cord was doubly clamped and cut. The stent was delivered spontaneously intact with a three-vessel cord being noted. On a complete inspection of the patient's vaginal vault no lacerations were appreciated. Uterus was noted to be firm and below the umbilicus. Estimated blood loss 100 cc All counts were correct x 2, patient and tolerated delivery well and are resting comfortably.
[2024-01-20] MEDS: IBUPROFEN 600 MG TAB PO SCH (17:20)
[2024-01-20] MEDS: ACETAMINOPHEN TAB 325 MG TAB PO PRN (18:57)
[2024-01-20] MEDS: SENNOSIDES-DOCUSATE SODIUM 1 EACH TAB PO SCH (19:41)
[2024-01-21 08:33] LABS: Basophils % (A) 0 %; Eosinophils # (A) 0.3 k/uL (0-0.7); Eosinophils % (A) 3 %; HCT 28.8 % (34.0-46.0); HGB 9.7 gm/dL (11.4-16.0); Lymphocytes # (A) 1.7 k/uL (1.0-4.8); Lymphocytes % (A) 16 %; MCH 29.9 pg (25.0-35.0); MCHC 33.6 g/dL (31.0-37.0); Mean Platelet Volume 10.8; Monocytes # (A) 0.5 k/uL (0-1.0); Monocytes % (A) 4 %; Neutrophils # (A) 7.9 k/uL (1.3-7.7); Neutrophils % (A) 75 %; Platelet Count 158 k/uL (150-450); RBC 3.24 m/uL (3.80-5.40); RDW 14.5 % (11.5-15.5); WBC 10.5 k/uL (3.8-10.6)
--- NOTE | 2024-01-21 09:34 | P.DS ---
Providers Date of admission: 01/20/24 06:22 Expected date of discharge: 01/21/24 Attending physician: Tavares Conn Primary care physician: Stated None - Discharge Diagnosis(es) (1) Term Current Visit: Yes Status: Acute (2) Normal spontaneous vaginal delivery Current Visit: Yes Status: Acute Hospital Course: The patient is a 39-year-old 5 para 4-0-0-5 who was admitted for elective induction at 39+ weeks by good dating parameters. Her has been entirely uncomplicated. She did fall into the category of advanced maternal age and had negative trisomy testing. She additionally is known to be Rh- and received RhoGAM at 28 weeks. On labor and delivery, all signs were reassuring with a category 1 heart rate tracing and group B strep status is negative. She had Pitocin augmentation started followed by artificial rupture of membranes. She had an epidural catheter placed around the onset of the active phase of labor and progressed quickly thereafter to complete and pushed very quickly to a normal spontaneous vaginal delivery of a viable 6 pound 12 ounce baby girl with Apgars of 9 at 1 minute and 10 at 5 minutes. Her course was unremarkable with vital signs remaining stable and her temperature was afebrile throughout. She was deemed stable for discharge on day #1 and was discharged home to follow-up in the office in 6 weeks time routinely. Discharge instructions included calling for any significantly increased bleeding or foul-smelling lochia, significantly increased fever or abdominal pain, perineal complaints, breast complaints, or anything else that concerned her. She was additionally instructed to have nothing in the vagina for at least 6 weeks time to include intercourse. She understood her instructions and agrees to follow-up as noted above. Discharge medications included continued vitamins as she has opted to breast-feed. She was otherwise to use [id number] analgesic pain medications as needed. Maternal blood type is A- and rubella status is immune. cord blood was sent for evaluation for the necessity of RhoGAM prior to discharge. Procedures: #1. Pitocin induction #2. Artificial rupture of membranes #3. Epidural analge freddy #4. Normal spontaneous vaginal delivery Patient Condition at Discharge: Stable Plan - Discharge Summary New Discharge Prescriptions: No Action Vit No.180/Iron/Folic [ Plus Tablet] 1 each PO DAILY Ferrous Sulfate [Feosol] 325 mg PO BID Discharge Medication List Vit No.180/Iron/Folic [ Plus Tablet] 1 each PO DAILY 11/01/19 [History] Ferrous Sulfate [Feosol] 325 mg PO BID 07/10/21 [History] Follow up Appointment(s)/Referral(s): Tavares Conn MD [STAFF PHYSICIAN] - 03/02/24 11:00 am Discharge Disposition: HOME SELF-CARE
[2024-01-21 13:39] VITALS: RESP 18
[2024-01-21 17:53] VITALS: BP 114/65; PULSE 68; TEMP 98.2
== END 2024-01-21 17:15 | disposition home or self-care (01) | DRG 807 ==
LOC: 4FBP 06:22
PROVIDERS: ADMIT Obstetrics & Gynecology; ATTEND Obstetrics & Gynecology
PROC: 10E0XZZ Delivery of Products of Conception, External Approach (ICD-10-PCS; principal; 2024-01-20)
PROC: 3E033VJ Introduction of Other Hormone into Peripheral Vein, Percutaneous Approach (ICD-10-PCS; 2024-01-20)
PROC: 10907ZC Drainage of Amniotic Fluid, Therapeutic from Products of Conception, Via Natural or Artificial Opening (ICD-10-PCS; 2024-01-20)
DX: O99.02 Anemia complicating childbirth (principal); D64.9 Anemia, unspecified; Z79.899 Other long term (current) drug therapy; Z91.040 Latex allergy status; Z88.5 Allergy status to narcotic agent; Z3A.39 39 weeks gestation of pregnancy; Z37.0 Single live birth